=== PATIENT | female | born 1980 ===

== ENCOUNTER → 2017-07-02 | Outpatient (CLI) | payer OTHER | LOC: CIMAGING 08:01 | PROVIDERS: ATTEND Physician Assistant Medical | DX: M54.2 Cervicalgia (principal); R22.9 Localized swelling, mass and lump, unspecified; R93.8 Abnormal findings on diagnostic imaging of other specified body structures | CPT/HCPCS: 76536-PO ==

== ENCOUNTER → 2017-10-28 | Outpatient (CLI) | payer OTHER | LOC: FIMAGING 14:52 | PROVIDERS: ATTEND Family Medicine | DX: M54.5 Low back pain (principal); Z87.81 Personal history of (healed) traumatic fracture; M43.8X8 Other specified deforming dorsopathies, sacral and sacrococcygeal region ==

== ENCOUNTER → 2017-10-30 | Outpatient (CLI) | payer OTHER | LOC: FIMAGING 18:28 | PROVIDERS: ATTEND Family Medicine | DX: M51.85 Other intervertebral disc disorders, thoracolumbar region (principal); M53.85 Other specified dorsopathies, thoracolumbar region; Q63.9 Congenital malformation of kidney, unspecified; N85.9 Noninflammatory disorder of uterus, unspecified ==